=== PATIENT | female | born 1965 | race Caucasian/White ===

== ENCOUNTER 2017-11-06 16:45 | Emergency (ER) | payer SELFPAY ==
[~2017-11-06] VITALS: Ht 162.6 cm; Wt 74.4 kg
[~2017-11-06 16:45] MED LIST: ACEDIPPM PO; ALBU90OI61 INH; ALUMAGSIMA; CEPH500 PO; CRUTCH4 USE; CYCL10 PO; Ciloxan5 ML LEFTEYE; EPIN.3I IM; FEXO180 PO; FLUT.05NI; Flagyl500 MG PO; HYDACE10B PO; HYDACE5; HYDACE5 PO; HYDMOR2 PO; HYDR1TAB94 PO; IBUP200 PO; IBUP400; IBUP400 PO; IBUP600 PO; IBUP800 PO; LAVAP4L PO; LEVFLO500 PO; NAPR500 PO; NYSTRI30T TOP; Naprosyn500 MG PO; Norco 5-325 Ta1 EACH PO; OMEP20ER PO; PENVK500; PROACE100 PO; PROC10 PO; PROM25 PO; Phenergan25 M1 PO; RXCYCL10 PO; RXHYDACE PO; RXHYDMOR2 PO; RXPROACE PO; SULTRIDS PO; SUMA25 PO; TRAM50; TRAM50 PO; VICODIN 5-3001 EACH PO
[2017-11-06] MEDS ORDERED: ACET325 PO (17:05)
== END 2017-11-06 19:20 | disposition home or self-care (01) ==
LOC: ER 16:45
DX: S61.211A Laceration without foreign body of left index finger without damage to nail, initial encounter (principal); W22.8XXA Striking against or struck by other objects, initial encounter; Z88.8 Allergy status to other drugs, medicaments and biological substances; Z88.5 Allergy status to narcotic agent; F41.9 Anxiety disorder, unspecified; G43.909 Migraine, unspecified, not intractable, without status migrainosus; F17.200 Nicotine dependence, unspecified, uncomplicated
CPT/HCPCS: 12001; 73140; 90471; 90714; 99283

== ENCOUNTER 2018-01-05 17:08 | Emergency (ER) | payer BC ==
[~2018-01-05] VITALS: Ht 162.6 cm; Wt 72.6 kg
[~2018-01-05 17:08] MED LIST changes: +ACET325 PO
[2018-01-05] MEDS ORDERED: HYDR1TAB94 PO (17:45)
[2018-01-05] MEDS ORDERED: IBUP600 PO (18:55)
[2018-01-05] MEDS ORDERED: Prednisone20 MG PO (18:55)
== END 2018-01-05 19:07 | disposition home or self-care (01) ==
LOC: ER 17:08
DX: M54.32 Sciatica, left side (principal); F17.210 Nicotine dependence, cigarettes, uncomplicated; Z88.8 Allergy status to other drugs, medicaments and biological substances; Z88.5 Allergy status to narcotic agent
CPT/HCPCS: 73502; 99283

== ENCOUNTER 2018-09-07 07:37 | Day surgery (SDC) | payer OTHER ==
[~2018-09-07] VITALS: Ht 160 cm; Wt 69.0 kg
[~2018-09-07 07:37] MED LIST changes: +CLON.5 PO; +Migraine Relie1 EACH PO; +NICO21TP; +Prednisone20 MG PO; +SERT25 PO
[2018-09-07] MEDS ORDERED: ATOR40TA (08:12)
--- NOTE | 2018-09-07 10:26 | NUR ---
09/07/18 1026 Lin Maxwell LATE ENTRY FOR TODAY DURING PROCEDURE. 2 SIGMOID COLON POLYPS REMOVED ONLY ONE POLYP WAS RETRIEVED
== END 2018-09-07 10:01 | disposition home or self-care (01) ==
LOC: ORSCSDS 07:37
PROVIDERS: Internal Medicine Gastroenterology
PROC: 0DBN8ZX Excision of Sigmoid Colon, Via Natural or Artificial Opening Endoscopic, Diagnostic (ICD-10-PCS; principal; 2018-09-07 09:00)
DX: Z12.11 Encounter for screening for malignant neoplasm of colon (principal); K63.5 Polyp of colon; F41.0 Panic disorder [episodic paroxysmal anxiety]; K57.30 Diverticulosis of large intestine without perforation or abscess without bleeding; E78.5 Hyperlipidemia, unspecified; F17.210 Nicotine dependence, cigarettes, uncomplicated; Z79.899 Other long term (current) drug therapy
CPT/HCPCS: 88305; J0330; J1980; J2405; J7120

== ENCOUNTER 2019-04-18 21:08 | Emergency (ER) | payer OTHER ==
[~2019-04-18] VITALS: Ht 160 cm; Wt 64.4 kg
[~2019-04-18 21:08] MED LIST changes: +ATOR40TA
[2019-04-18 21:57] LABS: BASOPHILS ABSOLUTE AUTO 0.05 K/mm3 (0.00-0.23); BASOPHILS PERCENT AUTO 1 % (0-2); EOSINOPHILS ABSOLUTE AUTO 0.17 K/mm3 (0.00-0.68); EOSINOPHILS PERCENT AUTO 2 % (0-6); Hematocrit 45.7 % (33.0-51.0); Hemoglobin 15.3 g/dL (11.5-16.0); IMMATURE GRAN ABSOLUTE AUTO 0.02 K/mm3 (0.00-0.10); IMMATURE GRAN PERCENT AUTO 0 % (0-1); LYMPHOCYTES PERCENT AUTO 37 % (21-46); MONOCYTES ABSOLUTE AUTO 0.56 K/mm3 (0.16-1.47); MONOCYTES PERCENT AUTO 6 % (4-13); Mean Corpuscular HGB 31.1 pg (26.0-34.0); Mean Corpuscular HGB Conc 33.5 g/dL (31.5-36.5); Mean Corpuscular Volume 93 fL (80-100); Mean Platelet Volume 11.3 fL (9.1-12.4); NEUTROPHILS ABSOLUTE AUTO 4.83 K/mm3 (1.96-9.15); NEUTROPHILS PERCENT AUTO 54 % (41-73); Platelet Count 280 K/mm3 (150-400); RDW Coefficient Variation 12.7 % (11.7-14.2); RDW Standard Deviation 43.4 fL (35.1-46.3); Red Blood Cell Count 4.92 M/mm3 (3.80-5.20); White Blood Cell Count 8.93 K/mm3 (4.00-11.30)
[2019-04-18 22:15] LABS: Alanine Aminotransfer (ALT/SGP 28 U/L (12-78); Albumin, Blood 3.9 g/dL (3.4-5.0); Albumin/Globulin Ratio 1.1 (0.8-1.8); Alk Phos 108 U/L (50-136); Anion Gap 5 mmol/L (6-16); Aspartate Aminotrans (AST/SGOT 14 U/L (12-37); Bilirubin, Total 0.2 mg/dL (0.1-1.0); Blood Urea Nitrogen 14 mg/dL (8-24); Bun/Creatinine Ratio 17.9 (12.0-20.0); CO2, Blood 30 mmol/L (21-32); Calcium, Blood 8.7 mg/dL (8.5-10.1); Chloride, Blood 106 mmol/L (98-108); Creatinine, Blood 0.78 mg/dL (0.40-1.00); Globulin, Blood 3.6 g/dL (2.2-4.0); Glomerular Filtration Rate >60 (60-); Glucose, Blood 96 mg/dL (70-99); Potassium, Blood 3.5 mmol/L (3.5-5.5); Sodium, Blood 141 mmol/L (136-145); Total Protein, Blood 7.5 g/dL (6.4-8.2); Troponin I <0.015 ng/mL (0.000-0.040)
[2019-04-19] MEDS ORDERED: CYCL10 PO (01:09)
[2019-04-19] MEDS ORDERED: VOLTAREN100 GM TOP (01:09)
== END 2019-04-19 02:29 | disposition home or self-care (01) ==
LOC: ER 21:08
PROVIDERS: Emergency Medicine
DX: R42 Dizziness and giddiness (principal); S40.012A Contusion of left shoulder, initial encounter; E78.00 Pure hypercholesterolemia, unspecified; F17.210 Nicotine dependence, cigarettes, uncomplicated; Z88.5 Allergy status to narcotic agent; Z88.8 Allergy status to other drugs, medicaments and biological substances; Z79.899 Other long term (current) drug therapy; W19.XXXA Unspecified fall, initial encounter
CPT/HCPCS: 36415; 72072; 73010; 80053; 84484; 85025; 93005; 93010; 96374; 99284-25; J1885

== ENCOUNTER 2020-04-03 15:33 | Emergency (ER) | payer OTHER ==
[~2020-04-03] VITALS: Ht 160 cm; Wt 68.0 kg
[~2020-04-03 15:33] MED LIST changes: +VOLTAREN100 GM TOP
[2020-04-03 16:08] LABS: BASOPHILS ABSOLUTE AUTO 0.05 K/mm3 (0.00-0.23); BASOPHILS PERCENT AUTO 0 % (0-2); EOSINOPHILS ABSOLUTE AUTO 0.11 K/mm3 (0.00-0.68); EOSINOPHILS PERCENT AUTO 1 % (0-6); Hematocrit 47.3 % (33.0-51.0); Hemoglobin 15.6 g/dL (11.5-16.0); IMMATURE GRAN ABSOLUTE AUTO 0.05 K/mm3 (0.00-0.10); IMMATURE GRAN PERCENT AUTO 0 % (0-1); LYMPHOCYTES ABSOLUTE AUTO 2.73 K/mm3 (0.84-5.20); LYMPHOCYTES PERCENT AUTO 20 % (21-46); MONOCYTES ABSOLUTE AUTO 0.88 K/mm3 (0.16-1.47); MONOCYTES PERCENT AUTO 7 % (4-13); Mean Corpuscular HGB 30.5 pg (26.0-34.0); Mean Corpuscular Volume 93 fL (80-100); Mean Platelet Volume 11.3 fL (9.1-12.4); NEUTROPHILS ABSOLUTE AUTO 9.55 K/mm3 (1.96-9.15); NEUTROPHILS PERCENT AUTO 71 % (41-73); Platelet Count 267 K/mm3 (150-400); RDW Coefficient Variation 13.1 % (11.7-14.2); RDW Standard Deviation 44.7 fL (35.1-46.3); Red Blood Cell Count 5.11 M/mm3 (3.80-5.20); White Blood Cell Count 13.37 K/mm3 (4.00-11.30)
[2020-04-03 16:30] LABS: Alanine Aminotransfer (ALT/SGP 29 U/L (12-78); Albumin, Blood 3.6 g/dL (3.4-5.0); Albumin/Globulin Ratio 0.9 (0.8-1.8); Alk Phos 110 U/L (50-136); Anion Gap 5 mmol/L (6-16); Aspartate Aminotrans (AST/SGOT 12 U/L (12-37); Bilirubin, Total 0.2 mg/dL (0.1-1.0); Blood Urea Nitrogen 12 mg/dL (8-24); Bun/Creatinine Ratio 15.9 (12.0-20.0); CO2, Blood 29 mmol/L (21-32); Calcium, Blood 9.1 mg/dL (8.5-10.1); Chloride, Blood 108 mmol/L (98-108); Creatinine, Blood 0.76 mg/dL (0.40-1.00); Globulin, Blood 3.8 g/dL (2.2-4.0); Glomerular Filtration Rate >60 (60-); Glucose, Blood 89 mg/dL (70-99); Potassium, Blood 3.4 mmol/L (3.5-5.5); Sodium, Blood 142 mmol/L (136-145); Total Protein, Blood 7.4 g/dL (6.4-8.2)
[2020-04-03 17:52] LABS: Source, Urine Clean Catch
[2020-04-03 18:11] LABS: Appearance, Urine Clear (Clear); Bilirubin, Urine Neg (Neg); Blood, Urine 4+ (Neg); Color, Urine Yellow (P-Yellow); Glucose Qualitative, Urine Neg (Neg); Ketones, Urine Neg (Neg); Leukocyte Esterase, Urine Neg (Neg); Nitrite, Urine Neg (Neg); Protein, Urine Neg (Neg); Specific Gravity, Urine 1.015 (1.003-1.022); Urobilinogen, Urine NORM (Normal)
[2020-04-03 18:57] LABS: Bacteria Few /hpf; Squamous Epithelial Cells Few /hpf (Few); White Blood Cells, Urine 0-2 /hpf (0-5)
[2020-04-03] MEDS ORDERED: Roxicodone5 MG PO (19:10)
[2020-04-03] MEDS ORDERED: IBUP600 PO (19:10)
== END 2020-04-03 19:45 | disposition home or self-care (01) ==
LOC: ER 15:33
PROVIDERS: Physician Assistant
DX: M54.6 Pain in thoracic spine (principal); R10.9 Unspecified abdominal pain; F41.9 Anxiety disorder, unspecified; F17.200 Nicotine dependence, unspecified, uncomplicated; Z79.82 Long term (current) use of aspirin; Z79.899 Other long term (current) drug therapy; Z88.8 Allergy status to other drugs, medicaments and biological substances; Z88.5 Allergy status to narcotic agent
CPT/HCPCS: 36415; 74176; 80053; 81001; 81025; 83690; 85025; 93005; 93010; 96374; 99284-25; A9270; A9270-GY; J1885

== ENCOUNTER → 2020-05-18 | Outpatient (CLI) | payer OTHER ==
[~2020-05-18] MED LIST changes: +Roxicodone5 MG PO
== END | disposition home or self-care (01) ==
LOC: LAB SHORT 15:45 → LAB 15:45
DX: R31.9 Hematuria, unspecified (principal)
CPT/HCPCS: 87086

== ENCOUNTER 2021-02-05 07:43 | Day surgery (SDC) | payer OTHER ==
[~2021-02-05] VITALS: Ht 160 cm; Wt 82.2 kg
--- NOTE | 2021-02-05 10:15 | NUR ---
02/05/21 1015 Kaykay Gomez 1MG OF EPI ADDED TO FIRST BAG OF LR USED FOR JOINT IRRIGATION. 0.15ML OF EPI1MG/ML ADDED 30ML OF BUPIVICAINE 0.5% TP CREATE A MIXTURE OF BUPIVICAINE 0.5% WITH EPI 1:200,000.
== END 2021-02-05 11:50 | disposition home or self-care (01) ==
LOC: ORSCSDS 07:43
PROVIDERS: Orthopaedic Surgery
PROC: 0SBD4ZZ Excision of Left Knee Joint, Percutaneous Endoscopic Approach (ICD-10-PCS; principal; 2021-02-05 09:00)
DX: S83.232A Complex tear of medial meniscus, current injury, left knee, initial encounter (principal); M94.262 Chondromalacia, left knee; F17.210 Nicotine dependence, cigarettes, uncomplicated; M17.12 Unilateral primary osteoarthritis, left knee
CPT/HCPCS: A9270; J0171; J0690; J1100; J1885; J2405; J2704; J3010; J7120

== ENCOUNTER 2023-08-25 13:35 | Observation (INO) | payer SELFPAY ==
[~2023-08-25] VITALS: Ht 160 cm; Wt 79.2 kg
[2023-08-25 14:10] LABS: BASOPHILS ABSOLUTE AUTO 0.04 K/mm3 (0.00-0.23); BASOPHILS PERCENT AUTO 1 % (0-2); EOSINOPHILS ABSOLUTE AUTO 0.13 K/mm3 (0.00-0.68); EOSINOPHILS PERCENT AUTO 2 % (0-6); Hematocrit 45.4 % (33.0-51.0); Hemoglobin 15.2 g/dL (11.5-16.0); IMMATURE GRAN ABSOLUTE AUTO 0.01 K/mm3 (0.00-0.10); IMMATURE GRAN PERCENT AUTO 0 % (0-1); LYMPHOCYTES ABSOLUTE AUTO 2.81 K/mm3 (0.84-5.20); LYMPHOCYTES PERCENT AUTO 41 % (21-46); MONOCYTES ABSOLUTE AUTO 0.47 K/mm3 (0.16-1.47); MONOCYTES PERCENT AUTO 7 % (4-13); Mean Corpuscular HGB 30.8 pg (26.0-34.0); Mean Corpuscular HGB Conc 33.5 g/dL (31.5-36.5); Mean Corpuscular Volume 92 fL (80-100); Mean Platelet Volume 11.7 fL (9.1-12.4); NEUTROPHILS ABSOLUTE AUTO 3.38 K/mm3 (1.96-9.15); NEUTROPHILS PERCENT AUTO 49 % (41-73); Platelet Count 316 K/mm3 (150-400); RDW Coefficient Variation 12.9 % (11.7-14.2); RDW Standard Deviation 43.4 fL (35.1-46.3); Red Blood Cell Count 4.93 M/mm3 (3.80-5.20); White Blood Cell Count 6.84 K/mm3 (4.00-11.30)
[2023-08-25 14:36] LABS: Albumin, Blood 3.7 g/dL (3.4-5.0); Bilirubin, Total 0.3 mg/dL (0.1-1.0); Calcium, Blood 9.3 mg/dL (8.5-10.1); Creatinine, Blood 0.73 mg/dL (0.40-1.00); Globulin, Blood 3.7 g/dL (2.2-4.0); Potassium, Blood 3.9 mmol/L (3.5-5.5); Total Protein, Blood 7.4 g/dL (6.4-8.2)
[2023-08-25 19:02] VITALS: BP 104/69
--- NOTE | 2023-08-25 19:21 | NUR ---
NOTE: RECEIVED REPORT FROM ED, RN REGARDING PATIENT CONDITION. REPORT GIVEN TO KAVYA SUTHERLAND RN.
--- NOTE | 2023-08-25 22:26 | NUR ---
ADMISSION NOTE MS JAIME WAS ADMITTED FROM ER TO MEDICAL UNIT AT 1958HRS. SHE IS ALERT, ORIENTATED X4. NEURO EXAM SHOWED NO DEFICITS, HANDS HAVE EQUAL STRENGTH, FEET HAVE EQUAL STRENGTH. NO FACIAL DROOP. NO HEADACHE. SHE DENIES ANY SYMPTOMS OR WEAKNESS ON ADMISSION. SHE SAID SHE IS INDEPENDENT AT HOME. SHE HAS GOOD FAMILY SUPPORT FROM ADULT CHILDREN. ON TELEMETRY IN SINUS RHYTHM. SHE DENIES ANY PAIN. SHE IS A TOBACCO SMOKER BUT HAS DECLINED NICOTENE PATCH. BED LOW, CALL LIGHT IN REACH.
[2023-08-26 03:18] VITALS: BP 93/50
[2023-08-26 03:27] VITALS: BP 104/68
--- NOTE | 2023-08-26 03:37 | NUR ---
SHIFT SUMMARY MS JAIME HAS HAD NO CHANGES IN HER NEURO STATUS OVERNIGHT. NO PAIN, NO WEAKNESS. TELEMETRY SR, NO CALLS FROM FORENSIC TECHNICIAN. MS JAIME HAS DENIED ANY CONCERNS OVERNIGHT. BED LOW, CALL LIGHT IN REACH.
[2023-08-26 05:16] LABS: CHOL/HDL RATIO 4.9; Cholesterol 228 mg/dL (50-200); HDL Cholesterol 47 mg/dL (>39); LDL/HDL RATIO 3.2; Low Density Lipoprotein Chol 151 mg/dL (0-110); Triglycerides 149 mg/dL (30-160); Very Low Density Lipoprot Chol 29 mg/dL (6-32)
[2023-08-26 07:33] VITALS: BP 122/47
[2023-08-26] MEDS ORDERED: ASPI81CH PO (10:21)
[2023-08-26] MEDS ORDERED: ATOR40TA PO (10:21)
[2023-08-26] MEDS ORDERED: CLOP75 PO (10:22)
--- NOTE | 2023-08-26 13:10 | NUR ---
SHIFT/DISCHARGE SUMMARY: PATIENT A/OX4, PLEASANT AND COOPERATIVE c CARE. PATIENT DENIES CP/PRESSURE, NUMBNESS/TINGLING, SOB, N/V, DIAPHORESIS, AND DIZZINESS. PATIENT ON TELE, SR HR RANGES 60'S-70'S BPM. SENSATIONS INTACT AND STRENGTH ARE EQUALL TO ALL EXTREMITTIES WITHOUT ANY SIGNS OF DEFICIT NOTED. PATIENT REPORTS CHRONIC BACK PAIN AND HEADACHE, MEDICATED c PRN PAIN MEDS c GOOD EFFECT. PATIENT HAS EXCELLENT APPETITE, CONTINENCE OF BOWELS/BLADDER AND AMBULATES TO BATHROOM INDEPENDENTLY. PATIENT HAD AN ECHO DONE THIS PM. VITAL SIGNS REVIEWED. PIV TO R WRIST DC'D. PATIENT DISCHARGE HOME. DISCHARGE INSTRUCTIONS PACKET GIVEN TO PATIENT. EDUCATE PATIENT REGARDING ADMITITNG DX'S OF TIA/STROKE, S/S, TX, TO TAKE MEDS PRESCRIBED, AND TO FOLLOW UP c PCP. PATIENT VERBALIZED UNDERSTANDING AND NO FURTHER QUESTIONS. RX WAS FAXED TO PATIENT PREFERRED PHARMACY. ALL PATIENT PERSONAL BELONGINGS WERE SENT HOME c THE PATIENT. PATIENT LEFT THE ROOM AT 1307 AND WAS TRANSPORTED VIA WHEELCHAIR BY INSURANCE VERIFICATION REP STAFF TO PATIENT ENTRANCE.
== END 2023-08-26 13:05 | disposition home or self-care (01) ==
LOC: ER 13:35 → MEDS 13:36 → ENPENDDIS 08-26 10:11 → MEDS 08-26 13:05
PROVIDERS: Physician Assistant; ADMIT Internal Medicine
DX: I63.9 Cerebral infarction, unspecified (principal); G43.909 Migraine, unspecified, not intractable, without status migrainosus; F17.210 Nicotine dependence, cigarettes, uncomplicated; E78.5 Hyperlipidemia, unspecified; Z79.82 Long term (current) use of aspirin; Z88.8 Allergy status to other drugs, medicaments and biological substances
CPT/HCPCS: 36415; 70450; 70496; 70498; 70551; 80053; 80061; 83036; 85025; 93005; 93010; 99285-25; A9270; G0378; Q9967